=== PATIENT | female | born 1990 | race Caucasian/White ===

== ENCOUNTER 2017-11-10 02:24 | Emergency (ER) | payer SELFPAY ==
--- NOTE | 2017-11-10 02:42 | NUR ---
DECIDED TO LEAVE WITH .
== END 2017-11-10 02:42 | disposition left against medical advice (07) ==
LOC: ER 02:29
DX: Z53.21 Procedure and treatment not carried out due to patient leaving prior to being seen by health care provider (principal); O46.93 Antepartum hemorrhage, unspecified, third trimester; Z3A.28 28 weeks gestation of pregnancy